=== PATIENT | male | born 1985 | race African-American/Black ===

== ENCOUNTER 2021-10-17 01:15 | Emergency (ER) | payer SELFPAY ==
[~2021-10-17] VITALS: Ht 185.5 cm; Wt 100.7 kg
--- NOTE | 2021-10-17 01:39 | ED Integumentary General ---
General Chief Complaint: Laceration Stated Complaint: L HAND LAC,CUT WITH KNIFE Source: patient Exam Limitations: no limitations History of Present Illness Date Seen by Provider: Oct 17, 2021 Time Seen by Provider: 01:38 Initial Comments 36yo male was using his knife to cut something at home and jabbed himself in the thenar eminence of his left hand. He is right hand dominant. Complains of pain to the area. Tetanus is up to date. No loss of function, numbness. No other injury. Timing/Duration: just prior to arrival Severity: mild Location: hands Possible Cause: other (laceration) Associated Symptoms: denies symptoms Allergies and Home Medications Allergies Coded Allergies: No Known Drug Allergies (Unverified , 10/17/21) Patient Home Medication List Home Medication List Reviewed: Yes Review of Systems Review of Systems Constitutional: see HPI EENTM: no symptoms reported Respiratory: no symptoms reported Cardiovascular: no symptoms reported Gastrointestinal: no symptoms reported Genitourinary: no symptoms reported Musculoskeletal: no symptoms reported Skin: other (laceration) All Other Systems Reviewed Negative Unless Noted: Yes Past Aggdyni-Ohaetd-Knvzaf Hx Patient Social History Tobacco Use?: Yes Smoking Status: Current Everyday Smoker Substance use?: Yes Substance type: Marijuana Immunizations Up To Date COVID19 Vaccine Mat Packer: STATES HAS HAD 2 VACCINES Physical Exam Vital Signs Vital Signs - First Documented 10/17/21 01:26 Temp 36.5 Pulse 120 Resp 16 B/P (MAP) 151/90 (110) Pulse Ox 98 O2 Delivery Room Air Capillary Refill : General Appearance: WD/WN, no apparent distress Cardiovascular: regular rate, rhythm Respiratory: no respiratory distress, no accessory muscle use Extremities: normal range of motion, non-tender, normal inspection, no pedal edema, no calf tenderness Neurologic/Psychiatric: alert, normal mood/affect, oriented x 3 Skin: normal color, warm/dry Skin Problem Location: other (superficial laceration to left thenar eminence approx 3cm long, no active bleeding. NVI) Procedures/Interventions Wound Location: Upper Extremities Other Wound Location left thenar eminence Wound Length (cm): 3 Wound's Depth, Shape: superficial, linear Wound Explored: clean Irrigated w/ Saline (ccs): 50 Anesthesia: 1% Lidocaine Volume Anesthetic (ccs): 4 Suture: Ethlion Suture Size: 4-0 Number of Sutures: 5 Layer Closure?: 1 Number Deep Layer Sutures: 0 Sterile Dressing Applied?: Yes Progress/Results/Core Measures Results/Orders My Orders Orders - FELIX VANCE MD Ondansetron Oral Dissolve Tab (Zofran (10/17/21 02:00) Vital Signs/I&O 10/17/21 01:26 Temp 36.5 Pulse 120 Resp 16 B/P (MAP) 151/90 (110) Pulse Ox 98 O2 Delivery Room Air Departure Impression Primary Impression: Laceration of left hand Qualified Codes: S61.412A - Laceration without foreign body of left hand, initial encounter Disposition: HOME, SELF-CARE Condition: Stable Departure-Patient Inst. Decision time for Depature: 01:53 Referrals: [facility] [place],LOCAL PHYSICIAN (PCP) Primary Care Physician Patient Instructions: Laceration Repair With Stitches ED Add. Discharge Instructions: Keep the wound clean, dry and covered for the next 2-3 days. The stitches will need to come out in 10 days - you can come back to the Emergency Department to have them taken out - it is part of this visit. Tylenol or ibuprofen as needed for pain. Come back to the Emergency Department sooner if you have any increased pain, swelling, redness, drainage of pus or any other emergent, concerning symptoms. FELIX VANCE MD Oct 17, 2021 01:38
[2021-10-17] MEDS ORDERED: ONDANSETRON 4 MG (ZOFRAN) ORAL DISSOLVE TAB PO STA (02:00)
[2021-10-17 02:29] VITALS: BP 151/90
== END 2021-10-17 02:29 | disposition home or self-care (01) ==
LOC: ER 01:19
DX: S61.412A Laceration without foreign body of left hand, initial encounter (principal); F17.200 Nicotine dependence, unspecified, uncomplicated; W26.0XXA Contact with knife, initial encounter
CPT/HCPCS: 12002